=== PATIENT | female | born 2000 | race Caucasian/White ===

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

== ENCOUNTER 2023-04-12 19:26 | Emergency (ER) | payer MEDICAID, OTHER | END 2023-04-12 22:39 | disposition left against medical advice (07) | LOC: ER 19:28 | DX: R05.9 Cough, unspecified (principal); R09.81 Nasal congestion; Z53.21 Procedure and treatment not carried out due to patient leaving prior to being seen by health care provider ==